=== PATIENT | female | born 1965 | race Caucasian/White ===

== ENCOUNTER 2017-12-25 06:48 | Observation (INO) ==
[2017-12-25] MEDS ORDERED: Thrombin Topical Soln 5,000 UNIT Vial TOPICAL ONE (06:55)
[2017-12-25] MEDS ORDERED: Bupivacaine/Epinephrine PF Inj 0.5% 30 ML Vial ONE (06:55)
[2017-12-25] MEDS ORDERED: methylPREDNISolone acetate 40 MG/ML VIAL ONE (06:55)
[2017-12-25] MEDS ORDERED: Gelatin Size 100 Topical Foam ONE (06:55)
[2017-12-25] MEDS ORDERED: Chlorhexidine Gluconate 2% 1 Pack (2 Cloths) TOPICAL ONE (07:09)
[2017-12-25] MEDS ORDERED: Metoprolol Tartrate 25 MG Tablet PO ONE (07:09)
[2017-12-25] MEDS ORDERED: fentaNYL Citrate Inj 250 MCG/5 ML Ampul ONE (07:25)
[2017-12-25] MEDS ORDERED: Artificial Tears Opth Oint 3.5 GM Tube ONE (07:26)
[2017-12-25 07:48] LABS: Baso % (Auto) 0.7 % (0.0-2.0); Eos # (Auto) 0.2 th/mm3 (0.0-0.4); Eos % (Auto) 3.6 % (0.0-4.0); Hematocrit 43.8 % (35.0-46.0); Hemoglobin 15.1 gm/dL (11.6-15.3); Lymph # (Auto) 1.1 th/mm3 (1.0-4.8); Lymph % (Auto) 27.3 % (9.0-44.0); Mean Corpuscular HGB Conc 34.5 % (32.0-36.0); Mean Corpuscular Hemoglobin 34.8 pg (27.0-34.0); Mean Corpuscular Volume 100.9 fL (80.0-100.0); Mean Platelet Volume 6.8 fL (7.0-11.0); Mono # (Auto) 0.6 th/mm3 (0.0-0.9); Mono % (Auto) 14.2 % (0.0-8.0); Neut # (Auto) 2.3 th/mm3 (1.8-7.7); Neut % (Auto) 54.2 % (16.0-70.0); Platelet Count 205 th/mm3 (150-450); Red Blood Count 4.34 mil/mm3 (4.00-5.30); Red Cell Distribution Width 13.1 % (11.6-17.2); White Blood Count 4.2 th/mm3 (4.0-11.0)
[2017-12-25 07:57] LABS: Activated Partial Thrombo Time 27.1 sec (24.3-30.1); Prothrombin Time 10.3 sec (9.8-11.6)
[2017-12-25] MEDS ORDERED: ceFAZolin 2 GM Premix Inj 2 GM/50 ML PIGGYBACK IV.SIG SCH (08:00)
[2017-12-25] MEDS ORDERED: Sodium Chlor 0.9% Inj 500 ML IV.SIG SCH (08:00)
[2017-12-25 08:07] LABS: Albumin 3.5 g/dL (3.4-5.0); Anion Gap 5 meq/L (5-15); Aspartate Aminotransferase 18 U/L (15-37); Blood Urea Nitrogen 12 mg/dL (7-18); Calcium 8.6 mg/dL (8.5-10.1); Carbon Dioxide 32.2 meq/L (21.0-32.0); Chloride 107 meq/L (98-107); Glomerular Filtration Rate Greater Than 89 mL/min (>89); Glucose,Random 71 mg/dL (74-106); Potassium 3.9 meq/L (3.5-5.1); Sodium 144 meq/L (136-145)
[2017-12-25 08:10] LABS: Alanine Aminotransferase 21 U/L (10-53); Alkaline Phosphatase 62 U/L (45-117); Total Protein 6.9 g/dL (6.4-8.2)
[2017-12-25] MEDS ORDERED: Glycopyrrolate Inj 1 MG/5 ML Syringe IV.PUSH ONE (08:28)
[2017-12-25] MEDS ORDERED: Lidocaine PF 1% Inj 5 ML Syringe OTHER ONE (08:28)
[2017-12-25] MEDS ORDERED: Neostigmine Inj 5 MG/5 ML Syringe IV.PUSH ONE (08:28)
[2017-12-25 08:32] LABS: Bacteria,Urine Moderate /hpf; Bilirubin,Urine Negative (Negative); Clarity,Urine Hazy (Clear); Color,Urine Yellow (Yellw/Straw); Glucose,Urine (UA) Negative (Negative); Leukocyte Esterase,Urine Trace (Negative); Mucus,Urine Many /lpf (Occasional); Nitrite,Urine Negative (Negative); Specific Gravity,Urine 1.023 (1.002-1.035); Squamous Epithelial Cell,Urine 12 /hpf (0-5)
--- NOTE | 2017-12-25 10:28 | P.OP ---
Preoperative Diagnosis: Lumbar spinal stenosis Postoperative Diagnosis: Lumbar spinal stenosis Date of procedure: 12/25/17 Procedure: L2-3 left hemilaminectomy, mesiofacetectomy, foraminotomy, microsurgical resection of the disk Anesthesia: BERTHA Surgeon: Eliezer Esquivel MD Floor Installer: Rochelle purdy Operation and Findings: INDICATIONS FOR THE SURGICAL PROCEDURE Ms Lira is a 52 year-old female who presented with intractable mechanical back pain and clinical evidence of left L3 lower extremity radiculopathy. She was found to have significant lumbar spinal stenosis at L2-3, which correlated with her clinical symptoms. She failed maximum nonsurgical management including multiple modalities of conservative treatment as well as pain management interventions by an interventional pain specialist. A surgical decompression was indicated as a last resort. The [id number] details of the procedure, indications, alternatives, risks and potential complications were fully discussed with the patient. The patient fully understood. All the questions were answered. No guarantees were given. The patient voiced requesting the procedure and provided informed consents. The patient was offered the alternative of delaying the procedure and continuing with nonsurgical management. DETAILS OF THE SURGICAL PROCEDURE After the induction of general anesthesia, endotracheal intubation was performed. A Birmingham catheter, bilateral COLTON hose and sequential compression devices were placed and kept throughout the procedure. The patient was positioned prone on a Daljit table over a Timothy frame. All pressure points were carefully padded with eggcrate mattress. The eyes were tapped shut after ointment was applied by the anesthesiologist to prevent corneal abrasion. A Dilia hugger was placed over the exposed lower body to maintain control of the core body temperature. The lower lumbar region was prepped and draped in the usual sterile fashion. A spinal needle was placed for localization and an x- ray performed with a C-arm. A skin incision was made in the midline over the spinous processes L2-L3 with a #10 blade. Small subcutaneous bleeders were controlled with a bipolar and the dissection was carried out through the lumbar fascia exposing the spinous processes. A subperiostial dissection was performed with a Parmar elevator and a Bovie over the left L2-L3 spinous process lamina and facets. A microdiscectomy self-retaining retractor was placed on the incision and an x-ray was obtained with an instrument placed underneath the lamina. At this point in the procedure the operating microscope was draped in the usual sterile fashion and brought to the field. The rest of the surgical procedure was performed using microsurgical dissection technique with exception of the closure. Once the level was confirmed, a decompressive laminectomy was performed at L2-3 on the left side using the TPS drill with an 4mm drill bit. A medial facetectomy was performed and the superior free border of the ligamentum flavum was dissected with a ligament dissector and removed with a thin footplate 2 mm Kerrison. The medial facetectomy was done and the L3 nerve root was identified and followed towards its exit in the foramen. Epidural veins located laterally to the dural sac were coagulated with a bipolar and incised with microscissors. Gentle medial retraction of the dural sac allowed inspection of the disc space. The patient had severe facet arthropathy with hypertrhopy of the joint facets and ligamentum flavum resulting in mass effect over the dural sac and nerve roots. In addition, there was a broad-based disc protusion, contributing to the stenosis. The annulus fibrosus of the disc was coagulated with the bipolar and incised with an 11 blade. The disc was carefully dissected from the surrounding tissue and removed with pituitary forceps. Then, a microdiscectomy was carried out in the standard fashion using straight and up-biting pituitary forceps. A good decompression of the dural sac and nerve root was achieved. The exit of the nerve root was inspected for residual disc fragments and hemostasis was secured with the bipolar. The incision was irrigated with a large amount of saline solution. A Valsalva maneuver failed to show any cerebrospinal fluid leak or bleeding. The decompression was assessed again and found to be satisfactory. The incision was then closed in layers. The fascia was closed with 0 Vicryl sutures in an interrupted fashion. The superficial fascia was closed with 0 Vicryl sutures. The fascia was infiltrated with 0.5% Marcaine with epinephrine 1:100,000 dilution. The subcutaneous tissue was irrigated then closed with 0 Vicryl and 3 -0 Vicryl. The skin was closed with 4-0 running subcuticular Vicryl. A sterile dressing was applied. At the end of the procedure, the sponge, needle and instrument counts were all correct. Estimated blood loss was less than 30 cc. No blood transfusion was given. No intraoperative complications occurred. The patient received prophylactic antibiotics. The patient was then extubated and transferred to the recovery room in stable condition.
[2017-12-25] MEDS ORDERED: Morphine Sulfate Inj 2 MG/ML Vial IV.PUSH PRN (10:38)
[2017-12-25] MEDS ORDERED: Menthol 5.8 MG Lozenge BUCCAL PRN (10:38)
[2017-12-25] MEDS ORDERED: Bisacodyl 10 MG Supp RECTAL PRN (10:38)
[2017-12-25] MEDS ORDERED: ALPRAZolam 0.5 MG Tablet PO PRN (10:42)
[2017-12-25] MEDS ORDERED: fentaNYL Citrate Inj 100 MCG/2 ML Ampul ONE (10:49)
[2017-12-25] MEDS ORDERED: *HYDROmorphone PF Inj 1 MG/ML Ampul PERIprocedural Use ONLY ONE ×2 (10:56→12:26)
[2017-12-25] MEDS ORDERED: HYDROmorphone PF Inj 1 MG/ML Ampul ONE (11:23)
[2017-12-25] MEDS: Sod Chloride 0.9% Inj 1,000 ML IV.CONT SCH ×2 (11:30→22:58)
--- NOTE | 2017-12-25 11:37 | XR ---
EXAM DATE: 12/25/2017 11:19 AM EDT AGE/SEX: 52 years / Female INDICATIONS: Herniated disk, microdiskectomy L2-3 CLINICAL DATA: This is the patient's initial encounter. Patient reports that signs and symptoms have been present for 1 day and indicates a pain score of Nonresponsive. MEDICAL/SURGICAL HISTORY: None. . Lumbar fusion COMPARISON: No prior exams available for comparison. FINDINGS: 2 coned-down lateral views of the lower lumbar spine were obtained intraoperatively using a matrix ca mel. This demonstrates that the patient is status post lower lumbar fusion the L4-5 and L5-S1 levels with pedicle screws and posterior fixation rods. One of the pedicle screws in the L4 vertebra has an linear band of lucency seen on both views which could indicate break in the screw. There is a java web services developer ior spinal retractor and probe in place posterior to the L3-4 interspace. The study is labeled assumi ng 5 nonrib-bearing lumbar vertebra. CONCLUSION: 1. Limited localization study demonstrating a metal probe posterior to the L3-4 interspace. 2. Status post fusion at the L4-5 and L5-S1 levels. One of the pedicle screws at the L4 level may be broken. Electronically signed by: El Meyers MD 12/25/2017 11:35 AM EDT
[2017-12-25] MEDS: ceFAZolin 2 GM Premix Inj 2 GM/50 ML PIGGYBACK IV.SIG SCH ×2 (14:10→22:58)
[2017-12-25] MEDS: Baclofen 10 MG Tablet PO SCH ×2 (14:52→21:40)
[2017-12-25] MEDS: predniSONE 10 MG Tablet PO SCH (15:00)
[2017-12-25] MEDS: Acyclovir 800 MG Tablet PO SCH (16:00)
[2017-12-25] MEDS ORDERED: Sodium Chloride 0.9% 2 ML Flush PRN IV.FLUSH (16:13)
[2017-12-25] MEDS ORDERED: Montelukast 10 MG Tablet PO SCH (18:00)
[2017-12-25] MEDS: Sodium Chloride 0.9% 2 ML Flush BID IV.FLUSH SCH (20:30)
[2017-12-25] MEDS: oxyCODONE/Acetaminophen 10/325 Tablet PO PRN (20:30)
[2017-12-25] MEDS ORDERED: traZODone 100 MG Tablet PO SCH (21:00)
[2017-12-25] MEDS: Senna/Docusate Sodium 8.6/50 MG Tablet PO SCH (21:40)
[2017-12-26] MEDS: oxyCODONE/Acetaminophen 10/325 Tablet PO PRN ×2 (02:41→09:09)
[2017-12-26] MEDS: Sod Chloride 0.9% Inj 1,000 ML IV.CONT SCH (06:10)
[2017-12-26] MEDS: ceFAZolin 2 GM Premix Inj 2 GM/50 ML PIGGYBACK IV.SIG SCH (06:42)
[2017-12-26] MEDS ORDERED: Duloxetine 60 MG DR Capsule PO SCH (09:00)
[2017-12-26] MEDS ORDERED: Lisinopril 20 MG Tablet PO SCH (09:00)
[2017-12-26] MEDS ORDERED: Multivitamin/Minerals Therapeutic Tablet PO SCH (09:00)
[2017-12-26] MEDS: predniSONE 10 MG Tablet PO SCH (09:10)
[2017-12-26] MEDS: Baclofen 10 MG Tablet PO SCH (09:10)
[2017-12-26] MEDS: Acyclovir 800 MG Tablet PO SCH (09:10)
[2017-12-26] MEDS: Senna/Docusate Sodium 8.6/50 MG Tablet PO SCH (09:10)
[2017-12-26] MEDS: Sodium Chloride 0.9% 2 ML Flush BID IV.FLUSH SCH (09:11)
--- NOTE | 2017-12-26 13:45 | P.DS ---
Date of admission: 12/25/17 10:38 Primary care physician: Casey Garcia DO Brief History from admission: Ms Lira is a 52 year-old female who presented with intractable mechanical back pain and clinical evidence of left L3 lower extremity radiculopathy. She was found to have significant lumbar spinal stenosis at L2-3, which correlated with her clinical symptoms. She failed maximum nonsurgical management including multiple modalities of conservative treatment as well as pain management interventions by an interventional pain specialist. A surgical decompression was indicated as a last resort. DS: Summary Hospital Course: MS. Lira underwent L2-3 left hemilaminectomy, mesiofacetectomy, foraminotomy, microsurgical resection of the disk on 12/25/17. Her surgery went well without complications. She is cleared for dc by Dr. Esquivel. Wound care and activity restrictions discussed. - Time Spent with Patient Total time spent providing and/or coordinating discharge services: Less than 30 minutes Exam Vital signs: Vital Signs 12/25/17 14:00 12/25/17 15:00 12/25/17 20:00 Temperature 98.6 F Pulse Rate 82 88 72 Respiratory Rate 16 16 16 Blood Pressure 138/75 117/69 119/78 Pulse Oximetry 95 97 97 12/26/17 00:00 12/26/17 04:00 12/26/17 08:00 Temperature 98.4 F 98.5 F 98.4 F Pulse Rate 75 64 63 Respiratory Rate 17 16 15 Blood Pressure 116/63 121/65 106/69 Pulse Oximetry 96 99 98 12/26/17 12:00 Temperature 98 F Pulse Rate 62 Respiratory Rate 16 Blood Pressure 126/65 Pulse Oximetry 98 Intake & Output 12/25/17 12/26/17 12/26/17 18:59 06:59 18:59 Intake Total 1100 / 1100 1900 / 1900 650 / 650 Output Total 20 / 20 Balance 1080 / 1080 1900 / 1900 650 / 650 Weight 67 kg 74.8 kg Intake: IV 1100 / 1100 50 / 50 NS Inj 1,000 ML @ 100 mls/hr IV 1000 / 1000 .CONT .Q10H SEBASTIEN Rx#:[id number] Ancef 2 GM Premix Inj 2 gm In 100 / 100 50 / 50 50 ml @ 100 mls/hr IV.SIG Q8H SEBASTIEN Rx#:[id number] Oral 800 / 800 600 / 600 Anesthesia Amount 1100 / 1100 Output: Estimated Blood Loss Other: # Voids 1 5 Date of Last Bowel Movement 12/24/17 12/24/17 12/24/17 Weight On Admission 67.1 kg Results Procedures completed during hospitalization: L2-3 left hemilaminectomy, mesiofacetectomy, foraminotomy, microsurgical resection of the disk - Impressions ITS Impressions Lumbar Spine X-Ray 12/25/17 00:00 CONCLUSION: 1. Limited localization study demonstrating a metal probe posterior to the L3- 4 interspace. 2. Status post fusion at the L4-5 and L5-S1 levels. One of the pedicle screws at the L4 level may be broken. Discharge Plan - Discharge Disposition Patient Disposition: Discharge Home - Discharge Condition Condition: Stable - Discharge Order Discharge Orders: Discharge Order (Routine); Ordered 12/26/17 Ordered By: Shabana Mims - Physicians Team Primary Care Provider: Casey Garcia Attending Provider: Eliezer Esquivel - Rxs /Orders / Referrals /Forms Prescriptions: Continue acyclovir 800 mg Tablet 800 mg PO Q4H PRN (Reason: Inflammation) alprazolam [Xanax] 0.5 mg Tablet 0.5 mg PO BID PRN (Reason: Anxiety) baclofen 10 mg Tablet 20 mg PO QID duloxetine 60 mg Capsule,Delayed Release(Dr/Ec) 60 mg PO DAILY ibuprofen 800 mg Tablet 800 mg PO TID PRN (Reason: Pain) lisinopril 20 mg Tablet 20 mg PO DAILY montelukast 10 mg Tablet 10 mg PO QPM qwahszgsmwcf-oxt-emer-FA-vit K [Adults Multivitamin] 18 mg iron-400 mcg-25 mcg Tablet 1 tab PO DAILY ondansetron HCl [Zofran] 4 mg Tablet 4 mg PO QID PRN (Reason: Nausea) oxycodone-acetaminophen 10-325 mg Tablet 1 tab PO Q6H PRN (Reason: Pain) prednisone 5 mg Tablet 5 mg PO DAILY PRN (Reason: Inflammation) trazodone 100 mg Tablet 100 mg PO HS Referrals: Casey Garcia DO [Primary Care Provider] - See Instructions - Discharge Instructions Patient Printed Instructions: Constipation (DC), Laminectomy (DC), Narcotic Pain Management (DC), Lumbar Brace (GEN) Additional Instructions: Take medications as directed. Keep or make your follow up appointments as directed by your provider. Continue to use incentive spirometer after discharge home. Do not change surgical dressing. Continue to wear lumbar brace as directed. - Post Discharge Care Plan Care Plan Goals: Your Health Problems: Goals to Promote Your Health: * To prevent worsening of your condition * To maintain your health at the optimal level Directions to Meet Your Goals: * Take your medications as prescribed * Follow your dietary instruction * Follow activity as directed * Keep your appointments as scheduled * Take your immunizations and boosters as scheduled * If your symptoms worsen call your PCP * If no PCP go to Urgent Care or Emergency Room Smoking is dangerous to your health. Avoid second hand smoke. You may reach the 24-hour crisis hotline for domestic abuse at .
== END 2017-12-26 14:34 | disposition home or self-care (01) ==
LOC: HSDC 06:48 → N06 06:48
PROVIDERS: ADMIT Neurological Surgery; ATTEND Neurological Surgery

== ENCOUNTER 2018-02-21 06:33 | Observation (INO) ==
[2018-02-21] MEDS ORDERED: Ketamine Inj 50 MG/5 ML Syringe IV.PUSH ONE (06:49)
[2018-02-21] MEDS ORDERED: Propofol Inj 500 MG/50 ML Vial ONE (06:50)
[2018-02-21] MEDS ORDERED: Chlorhexidine Gluconate 2% 1 Pack (2 Cloths) TOPICAL ONE (07:00)
[2018-02-21] MEDS ORDERED: Sod Chloride 0.9% Inj 1,000 ML IV.SIG SCH (07:00)
[2018-02-21] MEDS ORDERED: Sodium Chlor 0.9% Inj 500 ML IV.CONT ONE (07:00)
[2018-02-21] MEDS ORDERED: Metoprolol Tartrate 25 MG Tablet PO ONE (07:00)
[2018-02-21] MEDS ORDERED: Vancomycin Inj 1,000 MG in Sodium Chlor 0.9% Inj 250 ML IV.SIG SCH (07:00)
[2018-02-21] MEDS ORDERED: ceFAZolin 1 GM Premix Inj 2 GM/100 ML PIGGYBACK IV.SIG ONE (07:19)
[2018-02-21] MEDS ORDERED: Thrombin Topical Soln 5,000 UNIT Vial TOPICAL ONE (07:19)
[2018-02-21] MEDS ORDERED: Gelatin Size 100 Topical Foam ONE (07:19)
[2018-02-21 07:38] LABS: Prothrombin Time 10.3 sec (9.8-11.6)
[2018-02-21 07:42] LABS: Alanine Aminotransferase 19 U/L (10-53); Albumin 3.7 g/dL (3.4-5.0); Anion Gap 7 meq/L (5-15); Aspartate Aminotransferase 21 U/L (15-37); Baso % (Auto) 0.8 % (0.0-2.0); Blood Urea Nitrogen 13 mg/dL (7-18); Calcium 8.8 mg/dL (8.5-10.1); Carbon Dioxide 28.1 meq/L (21.0-32.0); Chloride 105 meq/L (98-107); Eos # (Auto) 0.2 th/mm3 (0.0-0.4); Eos % (Auto) 4.1 % (0.0-4.0); Glomerular Filtration Rate Greater Than 89 mL/min (>89); Glucose,Random 92 mg/dL (74-106); Hematocrit 44.8 % (35.0-46.0); Hemoglobin 15.3 gm/dL (11.6-15.3); Lymph # (Auto) 1.3 th/mm3 (1.0-4.8); Lymph % (Auto) 23.6 % (9.0-44.0); Mean Corpuscular HGB Conc 34.2 % (32.0-36.0); Mean Corpuscular Hemoglobin 34.2 pg (27.0-34.0); Mean Platelet Volume 6.8 fL (7.0-11.0); Mono # (Auto) 0.7 th/mm3 (0.0-0.9); Neut # (Auto) 3.3 th/mm3 (1.8-7.7); Neut % (Auto) 59.5 % (16.0-70.0); Platelet Count 220 th/mm3 (150-450); Red Blood Count 4.49 mil/mm3 (4.00-5.30); Red Cell Distribution Width 13.8 % (11.6-17.2); Sodium 140 meq/L (136-145); White Blood Count 5.6 th/mm3 (4.0-11.0)
[2018-02-21 07:45] LABS: Alkaline Phosphatase 78 U/L (45-117); Total Protein 7.2 g/dL (6.4-8.2)
[2018-02-21] MEDS ORDERED: fentaNYL Citrate Inj 250 MCG/5 ML Ampul ONE (08:59)
[2018-02-21] MEDS ORDERED: Ketamine Inj 500 MG/10 ML Vial ONE (09:00)
[2018-02-21] MEDS ORDERED: Propofol 1000 mg/100 ml Inj 1,000 MG/100 ML BOTTLE ONE (10:00)
[2018-02-21] MEDS ORDERED: fentaNYL Citrate Inj 100 MCG/2 ML Ampul ONE (11:40)
--- NOTE | 2018-02-21 11:42 | XR ---
EXAM DATE: 02/21/2018 11:32 AM EST AGE/SEX: 53 years / Female INDICATIONS: Post-op C5-C6 anterior cervical fusion. CLINICAL DATA: This is the patient's initial encounter. Patient reports that signs and symptoms have been present for 1 day and indicates a pain score of Nonresponsive. MEDICAL/SURGICAL HISTORY: Non-responsive. Fusion, cervical. COMPARISON: No prior exams available for comparison. FINDINGS: Status post fusion of the cervical spine at C3-4 and C5-6 with anterior fixation plates. There are di sc spacers at C3-4, C4-5 and C5-6. There is good alignment of the cervical spine and fusion. The hard cai is grossly intact. CONCLUSION: Good position and alignment on this postoperative study. Electronically signed by: Ramirez Rodriguez MD Board Certified Radiologist 02/21/2018 11:41 AM EST
[2018-02-21] MEDS ORDERED: HYDROmorphone PF Inj 0.5 MG/0.5 ML Syringe ONE (11:47)
[2018-02-21] MEDS ORDERED: Bisacodyl 10 MG Supp RECTAL PRN (12:21)
[2018-02-21] MEDS ORDERED: ALPRAZolam 0.5 MG Tablet PO PRN (12:23)
[2018-02-21] MEDS ORDERED: predniSONE 5 MG Tablet PO PRN (12:23)
[2018-02-21] MEDS: Sod Chloride 0.9% Inj 1,000 ML IV.CONT SCH ×2 (12:41→23:15)
[2018-02-21] MEDS: HYDROmorphone PF Inj 0.5 MG/0.5 ML Syringe IV.PUSH PRN ×3 (13:41→23:36)
[2018-02-21] MEDS: Baclofen 10 MG Tablet PO SCH ×3 (13:41→21:51)
[2018-02-21] MEDS: oxyCODONE/Acetaminophen 10/325 Tablet PO PRN ×2 (14:47→19:58)
[2018-02-21] MEDS ORDERED: Phenol 1.4% 180 ML Spray Bottle PO PRN (17:00)
[2018-02-21] MEDS: ceFAZolin 2 GM Premix Inj 2 GM/50 ML PIGGYBACK IV.SIG SCH (17:55)
[2018-02-21] MEDS ORDERED: Montelukast 10 MG Tablet PO SCH (18:00)
[2018-02-21] MEDS ORDERED: traZODone 100 MG Tablet PO SCH (21:00)
[2018-02-21] MEDS: Senna/Docusate Sodium 8.6/50 MG Tablet PO SCH (21:52)
[2018-02-22] MEDS: ceFAZolin 2 GM Premix Inj 2 GM/50 ML PIGGYBACK IV.SIG SCH ×2 (00:48→08:56)
[2018-02-22] MEDS: HYDROmorphone PF Inj 0.5 MG/0.5 ML Syringe IV.PUSH PRN ×2 (03:43→08:45)
[2018-02-22] MEDS: oxyCODONE/Acetaminophen 10/325 Tablet PO PRN ×2 (07:08→10:46)
[2018-02-22] MEDS: Senna/Docusate Sodium 8.6/50 MG Tablet PO SCH (08:48)
[2018-02-22] MEDS: Baclofen 10 MG Tablet PO SCH (08:48)
[2018-02-22] MEDS ORDERED: Duloxetine 60 MG DR Capsule PO SCH (09:00)
[2018-02-22] MEDS ORDERED: Pantoprazole Sodium 20 MG DR Tablet PO SCH (09:00)
[2018-02-22] MEDS ORDERED: Acyclovir 800 MG Tablet PO SCH (09:00)
[2018-02-22] MEDS ORDERED: Lisinopril 20 MG Tablet PO SCH (09:00)
[2018-02-22] MEDS: Sod Chloride 0.9% Inj 1,000 ML IV.CONT SCH (09:44)
[2018-02-22 13:16] VITALS: BP 144/65; PULSE 58; TEMP 98.6; O2SAT 97
--- NOTE | 2018-02-22 13:42 | P.PNNS ---
Subjective Interval history: February 22, 2018 The patient has been stable overnight. She is complaining of some neck pain and a sore throat with some dysphagia. Physical Exam Vital signs: Vital Signs 02/21/18 16:00 02/21/18 19:23 02/21/18 23:26 Temperature 98.1 F 98.5 F 97.6 F Pulse Rate 65 61 56 L Respiratory Rate 20 18 18 Blood Pressure 129/62 144/74 H 119/69 Pulse Oximetry 97 98 95 02/22/18 03:41 02/22/18 08:16 02/22/18 12:22 Temperature 98.3 F 98.8 F 98.6 F Pulse Rate 61 64 58 L Respiratory Rate 17 18 19 Blood Pressure 121/67 130/82 144/65 H Pulse Oximetry 96 99 97 Intake & Output 02/21/18 02/22/18 02/22/18 18:59 06:59 18:59 Intake Total 2049 / 2049 1050 / 1050 1000 / 1000 Output Total 80 / 80 20 / 20 5 / 5 Balance 1969 / 1969 1030 / 1030 995 / 995 Weight 70.3 kg 77.4 kg Intake: IV 50 / 50 1050 / 1050 1000 / 1000 NS Inj 1,000 ML @ 100 mls/hr IV 1000 / 1000 1000 / 1000 .CONT .Q10H SEBASTIEN Rx#:[id number] Ancef 2 GM Premix Inj 2 gm In 50 / 50 50 / 50 0 / 0 50 ml @ 100 mls/hr IV.SIG Q8H SEBASTIEN Rx#:[id number] Anesthesia Amount 1999 / 1999 Output: Estimated Blood Loss 50 / 50 Wound Drainage 30 / 30 20 / 20 5 / 5 # 1 Anterior Neck 30 / 30 / 20 5 / 5 Other: # Voids 2 7 Date of Last Bowel Movement 02/21/18 02/21/18 Weight On Admission 63.2 kg - Routine Neurological Exam The patient is lying comfortably in bed as I enter the room. She is in no acute distress. On neurological examination, mental status testing finds her to be awake and alert. She is oriented by 3. Cognitive functions grossly intact. His speech is fluent. She may have some very mild hoarseness. Cranial nerve testing 2 through 12 is grossly intact. There were no focal motor nor sensory deficits. Patient is ambulatory and continent. The cervical wound appears to be clear with the dressing in place and minimal drainage from an in situ drain. Assessment and Plan - Plan February 22, 2018 Patient appears to be stable now postoperative day #1 status post anterior cervical discectomy and fusion at C5-C6. The drain can be discontinued. The patient appears to be stable for discharge. She is to follow-up with Dr. Esquivel as an outpatient as scheduled.
[2018-02-22 14:25] VITALS: RESP 20
--- NOTE | 2018-02-22 15:35 | P.OP ---
Preoperative Diagnosis: Cervical spinal stenosis with radiculopathy Postoperative Diagnosis: Cervical spinal stenosis with radiculopathy Date of procedure: 02/21/18 Procedure: C5-6 anterior cervical discectomy, interbody arthodhesis using PEEK cage filled with autologous bone graft, Simplicity plate and screws Anesthesia: BERTHA Surgeon: Eliezer Esquivel MD Survey Supervisor: Rochelle Jones Pathology: none sent Operation and Findings: INDICATIONS FOR THE PROCEDURE Ms Lira is a 53 year-old female who presented with intractable neck pain and clinical evidence of C6 upper extremity radiculopathy. She had a disk herniation and stenosis adjacent to a area of prior fusion AT C3-5. The patient has failed maximum nonsurgical management including multiple modalities of conservative treatment as well as pain management interventions by an interventional pain specialist. A surgical decompression and arthrodhesis were indicated. The gwjm-ji-yjzb details of the procedure, indications, alternatives, risks and potential complications were fully discussed with the patient. The patient fully understood. All The questions were answered. No guarantees were given. The patient voiced requesting the procedure and provided informed consents. The patient was offered the alternative of delaying the procedure and continuing with nonsurgical management. DETAILS OF THE SURGICAL PROCEDURE After the induction of general anesthesia, endotracheal intubation was performed. A Birmingham catheter, bilateral COLTON hose, and sequential compression devices were placed and kept throughout the procedure. The patient was positioned supine on a Daljit table with the head over a gel doughnut. All pressure points were carefully padded with egg crate mattress. The eyes were tapped shut after ointment was applied by the anesthesiologist to prevent corneal abrasion. A Dilia hugger was placed over the exposed lower body to maintain control of the core body temperature. The electrophysiological team placed the needles and electrodes in their proper location and baseline SSEP's and motor evoked potentials were registered. The anterior cervical region was prepped and draped in the usual sterile fashion. A localizing x-ray was performed with a C-arm. The surgical procedure was performed in several steps as follow: SURGICAL APPROACH A skin incision was made along the middle cervical crease with a #10 blade. The dissection was carried out through the platysma exposing the sternocleidomastoid muscle. The cervical spine was approached following the fascial layers of the neck just medial to the anterior border of the sternocleidomastoid and carotid sheath by a combination of sharp and dull dissection. The omohyoid muscle was identified and carefully dissected laterally and the deep cervical fascia was carefully opened. The longus colli muscles were retracted to each side of the midline. . The plate at C3-C5 was exposed. Initially the locking screws were sequentially removed, and then the set screws were removed. The plate was cut between C4 and C5, dissected from the surrounding tissues and carefully elevated with a ligament dissector. A marker was placed at the disc space C5-6 and a cross-table lateral x-ray performed with a C-arm. SURGICAL DECOMPRESSION In order to decompress the anterior surface of the spinal cord it was necessary to preform a microsurgical resection of the disk. At this point in the procedure the operating microscope was draped in the usual sterile fashion and brought to the field. The rest of the surgical procedure was performed using microdissection technique with the exception of the closure. Under the operative microscopic, an anterior osteophytic spur was carefully removed using the leksell, and a self-retaining retractor was placed underneath the longus colli muscle. The annulus at C5-6 was incised with a #15 blade and microdiscectomy was then carefully carried out using angled curets and pituitary forceps. Although the intention was to consider potential placement of a Mobi C artificial disk, the region was semi fused with a syndesmophyte, the disk space was too collapsed and too arthritic. The patient had a posterior osteophytic/disk complex which was producing mass affect on the anterior surface of the dural sac. This was carefully drilled with a TPS drill and resected with a think foot plate 2mm kerrison under high magnification. The posterior longitudinal ligament was then elevated with an angled curet and incised with a 15 bladed knife. A careful resection of the posterior longitudinal ligament was carried out using a thin footplate 2 mm Kerrison. The decompression was then carried out laterally, and a bilateral foraminotomy was performed with a 2mm thin foot Kerrison. Then the vertebral bodies above and below the disk space were undercut using a 2 mm thin foot Kerrison. The epidural space was the systematically assessed with a nerve hook in search for disk fragments. An excellent decompression was achieved in both, the dural sac and bilateral exiting nerve roots. The incision was then irrigated with a large amount of antibiotic solution INTERBODY ARTHRODHESIS In order to avoid collapse of the disk space which would result in bilateral foraminal stenosis, and to increase the chances of a successful fusion, it was necessary to place an interbody cage filled with autologous bone. At this point of the procedure, the superior and inferior endplates were then evenly decorticated with a TPS drill. The use of a drill in combination with a curette allowed me to systematically remove the cartilaginous endplates, exposing healthy bone for the interbody arthrodesis. forteen millimeters distraction pins were then placed at the vertebral bodies adjacent to the disk space, and gentle distraction was applied. The size of the interbody cage was then assessed using different size spacers, and a rasp was used to ensure no residual cartilage. A PEEK cage of the appropriate size was selected, and the interbody arthrodesis was then preformed by carefully impacting a PEEK cage filled with autologous bone graft to the disc space C5-6. An excellent position of the cage was achieved. This was was confirmed anatomically by feelling the space posterior to the implant and distance to the anterior surface of the dural sac. Radiological confirmation of the position was performed with a cross lateral xray performed with the C-arm. INTERNAL INSTRUMENTAL FIXATION Once that the interbody device was in an appropriate position, it was necessary to stabilize the spine with anterior instrumentation. Anterior instrumentation has demonstrated to increase the rate of fusion, acelerate the patient's recovery, and decrease the rate of failed interbody grafts. At this point of the procedure, the distance between the vertebral bodies was carefully measures, and a Simplicity plate was brought to the field and presented in front of the C5 and 6 vertebral bodies. Residential Service Technician holes were then drilled using the TPS drill, and the plate was then secured to the spine using self-drilling, self-tapping screws. Initially, the inferior right screw was inserted, followed by placement of the contra lateral upper screw. The remaining screws were sequentially placed in a contra-lateral fashion. A proper purchase was achieved with all screws and the position of the cage, plate and screws, and alignment of the spine was assessed anatomically by direct visualization, and radiologically by performing a cross lateral xray of the cervical spine with the C-arm. CLOSURE The incision was irrigated with several liters of antibiotic solution. Hemostasis was achieved with a bipolar. The screws were locked to prevent backing out. A 7 mm Daljit-Loera drain was left in the prevertebral space and externalized through a separate stab incision. The incision was then closed in layers. 3-0 Vicryl with interrupted sutures was used to close the platysma and subcutaneous tissue. The skin was closed with 4-0 running subcuticular Vicryl and Dermabond was applied to the skin. The drain was secured with a 3-0 nylon. At the end of the procedure the sponge, needle and instrument counts were all correct. The estimated blood loss was less than 50 cc. No blood transfusion was given. No intraoperative complications occurred. The patient received prophylactic antibiotics. The patient was then extubated and transferred to the recovery room in stable condition.
== END 2018-02-22 13:30 | disposition home or self-care (01) ==
LOC: HSDC 06:33 → HSDI 06:33 → N06 13:04
PROVIDERS: ADMIT Neurological Surgery; ATTEND Neurological Surgery
CPT/HCPCS: 72040; 76000; 80053; 85025; 85610; 85730; 87641; 94150; 96361; 96365; 96366; 96375; 96376; C1713; G0378; J0131; J0690; J1100; J1170; J1580; J2250; J2704; J3010; J3370; J7030; J7050; J7120; L0150; L0172